=== PATIENT | male | born 1960 | race Caucasian/White ===

== ENCOUNTER → 2017-01-20 | Outpatient (CLI) | payer BC ==
[~2017-01-20] MED LIST: LISINOPRIL10 MG PO; VIT B-12 PO
--- NOTE | ~2017-01-20 | EKG ---
PATIENT: FELIZ BACON UNIT #: [id number] Ventricular Rate: 56 BPM Atrial Rate: 56 BPM P-R Interval: 130 ms QRS Duration: 120 ms Q-T Interval: 434 ms QTC Calculation(Bezet): 418 ms P [place]: 60 degrees Calculated R [place]: 26 degrees Calculated T [place]: 18 degrees Diagnosis Line: Sinus bradycardia Diagnosis Line: RSR' or QR pattern in V1 suggests right Diagnosis Line: ventricular conduction delay Diagnosis Line: Borderline ECG Diagnosis Line: No previous ECGs available Diagnosis Line: Confirmed by MARIELA DE LEON MD ([id number]) on 01/20/2017 Diagnosis Line: 11:32:23 PM INTERPRETING MD: HALEY WEBER
[2017-01-20 10:26] LABS: CALCIUM SERUM 9.5 mg/dL (8.4-10.2); GLOM FILT RATE Estimated 84.4 mL/min (>60)
== END | disposition home or self-care (01) ==
LOC: CLAB 07:28
PROVIDERS: Orthopaedic Surgery
DX: C67.1 Malignant neoplasm of dome of bladder (principal)
CPT/HCPCS: 36415; 80048; 93005